=== PATIENT | female | born 1980 | race Caucasian/White ===

== ENCOUNTER 2017-11-26 14:43 | Emergency (ER) | payer OTHER | END 2017-11-26 17:46 | disposition home or self-care (01) | LOC: ER 14:43 | DX: T80.1XXA Vascular complications following infusion, transfusion and therapeutic injection, initial encounter (principal); I80.8 Phlebitis and thrombophlebitis of other sites; Y84.8 Other medical procedures as the cause of abnormal reaction of the patient, or of later complication, without mention of misadventure at the time of the procedure; Y92.89 Other specified places as the place of occurrence of the external cause | CPT/HCPCS: 93971; 99284-25 ==